=== PATIENT | male | born 2000 | race African-American/Black ===

== ENCOUNTER 2022-05-16 21:26 | Emergency (ER) | payer OTHER ==
[~2022-05-16] VITALS: Ht 190.5 cm; Wt 97.1 kg
[2022-05-16] MEDS ORDERED: MELATONIN3 MG PO (21:42)
[2022-05-16] MEDS ORDERED: PREDNISONE20 MG PO (22:07)
[2022-05-16] MEDS ORDERED: PEPCID20 MG PO (22:07)
== END 2022-05-16 22:44 | disposition home or self-care (01) ==
LOC: ED 21:26
DX: L50.0 Allergic urticaria (principal)
CPT/HCPCS: 99283; J7512